=== PATIENT | male | born 1980 | race Caucasian/White ===

== ENCOUNTER 2017-05-12 05:12 | Emergency (ER) | payer SELFPAY | END 2017-05-12 05:37 | disposition left against medical advice (07) | LOC: JD.ED 05:12 | DX: Z53.21 Procedure and treatment not carried out due to patient leaving prior to being seen by health care provider (principal) | CPT/HCPCS: 99283 ==

== ENCOUNTER 2017-05-14 14:23 | Emergency (ER) | payer SELFPAY ==
[2017-05-14] MEDS ORDERED: Sodium Chloride 0.9% 1,000 ML IV ONE (14:57)
--- NOTE | 2017-05-14 15:00 | EDM.PDOC ---
ED HPI GENERAL MEDICAL PROBLEM - General Chief Complaint: Respiratory Problem Stated Complaint: WEAK/TIRED Time Seen by Provider: 05/14/17 14:29 Source of Information: Reports: Patient History Limitations: Reports: No Limitations - History of Present Illness INITIAL COMMENTS - FREE TEXT/NARRATIVE: The patient states that he has been feeling generally weak for the past 2 days. He states that he had a cough and felt sweaty last night. He states that his throat hurts when he coughs. He has had nausea and dry heaves, but no abdominal pain, constipation, or diarrhea. He has not had any dysuria, but he states that his urine has been dark. Here in the ED, the patient is found to have a temperature of 101.7 with a heart rate of 149. The patient states that he has had similar symptoms in the past, when he smokes methamphetamine. He states that he smoked methamphetamine last night, and possibly the night before. Medical records indicate that the patient came to this ED 2 nights ago, 2017, but left before being seen. When asked about this, he states that shortly after arrival to the ED, he was called by his boss to come to work. The patient does not have a PCP. - Related Data Allergies Allergy/AdvReac Type Severity Reaction Status Date / Time No Known Allergies Allergy Verified 05/14/17 14:35 Home Meds: Home Meds . [No Known Home Meds] 05/14/17 [History] Past Medical History Psychiatric History: Reports: Anxiety - Past Surgical History Musculoskeletal Surgical History: Reports: ORIF (right ankle) Social & Family History - Family History Family Medical History: Noncontributory - Tobacco Use Smoking Status *Q: Current Every Day Smoker Years of Tobacco use: 19 Packs/Tins Daily: 1 - Caffeine Use Caffeine Use: Reports: Coffee - Alcohol Use Alcohol Use History: Yes Days Per Week of Alcohol Use: 2 Number of Drinks Per Day: 8 Total Drinks Per Week: 16 Alcohol Use Frequency: Socially - Recreational Drug Use Recreational Drug Use: Yes Drug Use in Last 12 Months: Yes Recreational Drug Type: Reports: Methamphetamine (last = 05/13/2017) - Living Situation & Occupation Living situation: Reports: (), Alone Occupation: Employed (armored car driver) ED ROS GENERAL - Review of Systems Review Of Systems: ROS reveals no pertinent complaints other than HPI. ED EXAM, GENERAL - Physical Exam Exam: See Below Exam Limited By: No Limitations General Appearance: Alert, WD/WN, No Apparent Distress Eye Exam: Bilateral Eye: Normal Inspection Ears: Normal External Exam, Hearing Grossly Normal Nose: Normal Inspection, No Blood Throat/Mouth: Normal Inspection, Normal Lips, Normal Voice, No Airway Compromise Head: Atraumatic, Normocephalic Neck: Normal Inspection, Full Range of Motion Respiratory/Chest: No Respiratory Distress, Lungs Clear, Normal Breath Sounds, No Accessory Muscle Use Cardiovascular: Normal Peripheral Pulses, No Gallop, No JVD, No Murmur, No Rub, Tachycardia (regular) Peripheral Pulses: 4+: Radial (L), Radial (R) GI/Abdominal: Normal Bowel Sounds, Soft, Non-Tender, No Organomegaly, No Distention, No Abnormal Bruit, No Mass (Male) Exam: Deferred Rectal (Males) Exam: Deferred Back Exam: Normal Inspection, Full Range of Motion, NT Extremities: Normal Inspection, Normal Range of Motion, No Pedal Edema, Normal Capillary Refill Neurological: Alert, Oriented, Normal Cognition, No Motor/Sensory Deficits Psychiatric: Normal Affect Skin Exam: Warm, Dry, Intact, Normal Color, No Rash EKG INTERPRETATION EKG Date: 05/14/17 Time: 14:33 Rhythm: Other (Sinus tachycardia) Rate (Beats/Min): 139 [place]: Normal P-Wave: Present QRS: Normal ST-T: Normal QT: Normal Comparison: NA - No Prior EKG Course - Vital Signs Last Recorded V/S: Last Vital Signs Temp 38.7 C H 05/14/17 14:32 Pulse 149 H 05/14/17 14:32 Resp 20 05/14/17 14:32 BP 146/84 H 05/14/17 14:32 Pulse Ox 98 05/14/17 14:32 Orthostatic Blood Pressure [ 118/73 Standing] Orthostatic Blood Pressure [ 139/76 Sitting] Orthostatic Blood Pressure [ 129/74 Supine] - Orders/Labs/Meds Orders: Active Orders 24 hr Category Date Time Status EKG Documentation Completion [RC] ASDIRECTED Care 05/14/17 14:38 Active Orthostatic Vital Signs [RC] STAT Care 05/14/17 14:55 Active CULTURE BLOOD [BC] Stat Lab 05/14/17 15:30 Received CULTURE BLOOD [BC] Stat Lab 05/14/17 15:40 Received Blood Culture x2 Reflex Set [OM.PC] Stat Oth 05/14/17 14:56 Ordered EKG 12 Lead [EK] Stat Ther 05/14/17 14:38 Ordered Labs: Laboratory Tests 05/14/17 05/14/17 05/14/17 Range/Units 14:40 14:40 14:40 WBC 12.24 H (4.23-9.07) K/mm3 RBC 4.48 L (4.63-6.08) M/mm3 Hgb 14.2 (13.7-17.5) gm/L Hct 41.8 (40.1-51.0) % MCV 93.3 H (79.0-92.2) fl MCH 31.7 (25.7-32.2) pg MCHC 34.0 (32.2-35.5) g/dl RDW Std Deviation 43.5 (35.1-43.9) fL Plt Count 208 (163-337) K/mm3 MPV 9.4 (9.4-12.3) fl Neutrophils % (Manual) 79 H (40-60) % Band Neutrophils % 0 (0-10) % Lymphocytes % (Manual) 8 L (20-40) % Atypical Lymphs % 0 % Monocytes % (Manual) 10 (2-10) % Eosinophils % (Manual) 1 (0.8-7.0) % Basophils % (Manual) 2 H (0.2-1.2) Platelet Estimate Adequate Plt Morphology Comment Normal RBC Morph Comment Normal PT 10.8 (8.0-13.0) SECONDS INR 0.99 APTT 29 (22-36) SECONDS D-Dimer, Quantitative 0.31 (0.19-0.59) mg/L Puncture Site ABG pH (7.35-7.45) ABG pCO2 (35.0-45.0) mmHg ABG pO2 (80.0-100.0) mmHg ABG HCO3 (22.0-26.0) meq/L ABG O2 Saturation (96.0-97.0) % ABG Base Excess (-2-2.0) Jos Test O2 Delivery Device Oxygen Flow Rate FiO2 (21.00-100.00) % Sodium 135 L (136-145) mEq/L Potassium 3.9 (3.5-5.1) mEq/L Chloride 101 (98-107) mEq/L Carbon Dioxide 21 (21-32) mEq/L Anion Gap 16.9 H (5-15) BUN 15 (7-18) mg/dL Creatinine 1.0 (0.7-1.3) mg/dL Est Cr Clr Drug Dosing 114.24 mL/min Estimated GFR (MDRD) > 60 (>60) mL/min BUN/Creatinine Ratio 15.0 (14-18) Glucose 98 (74-106) mg/dL Lactic Acid (0.4-2.0) mmol/L Calcium 8.6 (8.5-10.1) mg/dL Magnesium 1.8 (1.8-2.4) mg/dl Total Bilirubin 0.3 (0.2-1.0) mg/dL AST 31 (15-37) U/L ALT 45 (16-63) U/L Alkaline Phosphatase 88 (46-116) U/L Troponin I < 0.017 (0.00-0.056) ng/mL Total Protein 6.9 (6.4-8.2) g/dl Albumin 3.6 (3.4-5.0) g/dl Globulin 3.3 gm/dL Albumin/Globulin Ratio 1.1 (1-2) TSH 3rd Generation 0.411 (0.358-3.74) uIU/mL 05/14/17 05/14/17 Range/Units 15:15 15:30 WBC (4.23-9.07) K/mm3 RBC (4.63-6.08) M/mm3 Hgb (13.7-17.5) gm/L Hct (40.1-51.0) % MCV (79.0-92.2) fl MCH (25.7-32.2) pg MCHC (32.2-35.5) g/dl RDW Std Deviation (35.1-43.9) fL Plt Count (163-337) K/mm3 MPV (9.4-12.3) fl Neutrophils % (Manual) (40-60) % Band Neutrophils % (0-10) % Lymphocytes % (Manual) (20-40) % Atypical Lymphs % % Monocytes % (Manual) (2-10) % Eosinophils % (Manual) (0.8-7.0) % Basophils % (Manual) (0.2-1.2) Platelet Estimate Plt Morphology Comment RBC Morph Comment PT (8.0-13.0) SECONDS INR APTT (22-36) SECONDS D-Dimer, Quantitative (0.19-0.59) mg/L Puncture Site Lt radial ABG pH 7.42 (7.35-7.45) ABG pCO2 32.1 L (35.0-45.0) mmHg ABG pO2 62.0 L (80.0-100.0) mmHg ABG HCO3 20.6 L (22.0-26.0) meq/L ABG O2 Saturation 94.0 L (96.0-97.0) % ABG Base Excess -2.5 L (-2-2.0) Jos Test Positive O2 Delivery Device Room air Oxygen Flow Rate 0.0 FiO2 0.00 L (21.00-100.00) % Sodium (136-145) mEq/L Potassium (3.5-5.1) mEq/L Chloride (98-107) mEq/L Carbon Dioxide (21-32) mEq/L Anion Gap (5-15) BUN (7-18) mg/dL Creatinine (0.7-1.3) mg/dL Est Cr Clr Drug Dosing mL/min Estimated GFR (MDRD) (>60) mL/min BUN/Creatinine Ratio (14-18) Glucose (74-106) mg/dL Lactic Acid 1.4 (0.4-2.0) mmol/L Calcium (8.5-10.1) mg/dL Magnesium (1.8-2.4) mg/dl Total Bilirubin (0.2-1.0) mg/dL AST (15-37) U/L ALT (16-63) U/L Alkaline Phosphatase (46-116) U/L Troponin I (0.00-0.056) ng/mL Total Protein (6.4-8.2) g/dl Albumin (3.4-5.0) g/dl Globulin gm/dL Albumin/Globulin Ratio (1-2) TSH 3rd Generation (0.358-3.74) uIU/mL Meds: Medications Discontinued Medications Generic Name Dose Route Start Last Admin Trade Name Freq PRN Reason Stop Dose Admin Sodium Chloride 1,000 mls @ 999 mls/hr 05/14/17 14:57 01/16/18 15:03 Normal Saline IV 05/14/17 15:57 999 mls/hr ONETIME ONE Administration - Re-Assessments/Exams Free Text/Narrative Re-Assessment/Exam: 05/14/17 16:26 Two-view chest radiograph appears to be grossly normal. Cardiac silhouette is within normal limits. No pulmonary vascular congestion. No pleural effusions. No focal infiltrate. No pneumothorax. Formal read per the Radiologist pending. The patient is not orthostatic. 05/14/17 16:27 Notified that the patient wants to leave [facility]. He did not provide a urine sample , therefore I do not have his urinalysis or urine drug screen results. The remainder of the patient's workup is grossly unremarkable. His ABG reflects chronic respiratory alkalosis, fully compensated. Departure - Departure Time of Disposition: 16:30 Disposition: Against Medical Advice 07 Condition: Fair Clinical Impression: Methamphetamine abuse, Tachycardia, Fever - Discharge Information - My Orders Last 24 Hours: My Active Orders 05/14/17 14:38 EKG Documentation Completion [RC] ASDIRECTED EKG 12 Lead [EK] Stat 05/14/17 14:55 Orthostatic Vital Signs [RC] STAT 05/14/17 14:56 Blood Culture x2 Reflex Set [OM.PC] Stat 05/14/17 15:30 CULTURE BLOOD [BC] Stat 05/14/17 15:40 CULTURE BLOOD [BC] Stat - Assessment/Plan Last 24 Hours: My Active Orders 05/14/17 14:38 EKG Documentation Completion [RC] ASDIRECTED EKG 12 Lead [EK] Stat 05/14/17 14:55 Orthostatic Vital Signs [RC] STAT 05/14/17 14:56 Blood Culture x2 Reflex Set [OM.PC] Stat 05/14/17 15:30 CULTURE BLOOD [BC] Stat 05/14/17 15:40 CULTURE BLOOD [BC] Stat
--- NOTE | 2017-05-14 16:58 | CR ---
Chest: Two views of the chest were obtained. Comparison: No prior study. Heart size and mediastinum are normal. Lungs are clear. Bony structures are unremarkable. Impression: 1. Nothing acute is identified on two-view chest x-ray Diagnostic code #1
== END 2017-05-14 16:28 | disposition left against medical advice (07) ==
LOC: JD.ED 14:23
DX: R00.0 Tachycardia, unspecified (principal); R50.9 Fever, unspecified; F15.10 Other stimulant abuse, uncomplicated; F17.210 Nicotine dependence, cigarettes, uncomplicated
CPT/HCPCS: 36415; 36600; 71046; 80053; 82803; 83605; 83735; 84443; 84484; 85025; 85379; 85610; 85730; 87040; 87804; 93005; 96360; 99285; J7040; 99283